=== PATIENT | male | born 1935 | race Caucasian/White ===

== ENCOUNTER 2018-03-03 13:33 | Inpatient (IN) | payer MEDICARE, OTHER ==
--- NOTE | 2018-03-03 14:23 | EDM.PDOC ---
ED HPI GENERAL MEDICAL PROBLEM - General Chief Complaint: Cardiovascular Problem Stated Complaint: SOB; SWOLLEN LIPS Time Seen by Provider: 03/03/18 14:05 Source of Information: Reports: Patient, Family History Limitations: Reports: No Limitations - History of Present Illness INITIAL COMMENTS - FREE TEXT/NARRATIVE: 82-year-old male who has not been to a doctor in years, on no regular medications presents with worsening peripheral edema and shortness of breath over the past several months. He had another difficult night last night where he had to sit up to sleep so his finally convinced him to come in to be seen. He has no chest pain, occasional cough but no fever or chills. He is on no special diet. He feels no palpitations. He is very anxious to just get fixed and get discharged because he has things to do. Onset: Gradual Severity: Moderate Worsens with: Reports: Other (The shortness of breath is worse with activity or laying down) Associated Symptoms: Reports: Shortness of Breath, Other (Peripheral edema is his other main complaint). Denies: Chest Pain, Cough, Fever/Chills, Headaches, Nausea/Vomiting - Related Data Allergies Allergy/AdvReac Type Severity Reaction Status Date / Time Penicillins Allergy Hives Verified 03/03/18 14:07 Past Medical History HEENT History: Reports: Hard of Hearing - Infectious Disease History Infectious Disease History: Reports: Chicken Pox, Measles, Mumps - Past Surgical History HEENT Surgical History: Reports: Other (See Below) Other HEENT Surgeries/Procedures: left eye ulcer Social & Family History - Tobacco Use Smoking Status *Q: Never Smoker - Caffeine Use Caffeine Use: Reports: Coffee - Recreational Drug Use Recreational Drug Use: No ED ROS GENERAL - Review of Systems Review Of Systems: See Below Constitutional: Reports: Malaise, Decreased Appetite. Denies: Fever HEENT: Reports: Rhinitis (Patient has been struggling with some persistent rhinitis this winter) Respiratory: Reports: Shortness of Breath. Denies: Pleuritic Chest Pain, Cough , Sputum Cardiovascular: Denies: Chest Pain, Palpitations GI/Abdominal: Denies: Abdominal Pain, Nausea, Vomiting : Reports: No Symptoms Skin: Reports: No Symptoms Neurological: Denies: Dizziness, Headache Psychiatric: Reports: No Symptoms ED EXAM, GENERAL - Physical Exam Exam: See Below Exam Limited By: No Limitations General Appearance: Alert, No Apparent Distress Ears: Hearing Loss Throat/Mouth: Normal Inspection Head: Atraumatic Neck: Normal Inspection Respiratory/Chest: Decreased Breath Sounds (Diffuse decreased breath sounds) Cardiovascular: Tachycardia, Irregularly Irregular GI/Abdominal: Soft, Non-Tender Extremities: Pedal Edema (Symmetric 2+ pitting edema to the knees bilaterally) Neurological: Alert, Oriented EKG INTERPRETATION EKG Date: 03/03/18 Rhythm: A-Fib Rate (Beats/Min): 128 Comparison: NA - No Prior EKG EKG Interpretation Comments: Patient has atrial fibrillation with rapid ventricular response, frequent PVCs. Course - Vital Signs Last Recorded V/S: Last Vital Signs Temp 95.8 F 03/04/18 03:00 Pulse 71 03/04/18 03:00 Resp 20 03/04/18 03:00 BP 113/78 03/04/18 03:00 Pulse Ox 96 03/04/18 03:00 - Orders/Labs/Meds Orders: Active Orders 24 hr Category Date Time Status EKG 12 Lead [EK] Routine Ther 03/03/18 14:20 Stop Req Medication Orders Acetaminophen (Tylenol) 650 mg PO Q4H PRN PRN Reason: Pain (Mild 1-3)/fever Albuterol (Proventil Neb Soln) 2.5 mg NEB Q4H PRN PRN Reason: Shortness Of Breath/wheezing Aspirin (Halfprin) 81 mg PO DAILY [facility] Metoprolol Tartrate (Lopressor) 50 mg PO Q12H [facility] Last Admin: 03/03/18 21:14 Dose: 50 mg Ondansetron HCl (Zofran Odt) 4 mg PO Q6H PRN PRN Reason: Nausea able to take PO Pneumococcal Polyvalent Vaccine (Pneumovax 23) 0.5 ml IM .ONCE ONE Stop: 03/04/18 10:01 Labs: Laboratory Tests 03/03/18 03/03/18 Range/Units 14:27 14:27 WBC 8.4 (4.5-11.0) K/uL RBC 4.66 (4.30-5.90) M/uL Hgb 12.7 (12.0-15.0) g/dL Hct 39.7 L (40.0-54.0) % MCV 85 (80-98) fL MCH 27 (27-31) pg MCHC 32 (32-36) % Plt Count 256 (150-400) K/uL Neut % (Auto) 72 H (36-66) % Lymph % (Auto) 14 L (24-44) % [place] % (Auto) 11 H (2-6) % Eos % (Auto) 2 (2-4) % Baso % (Auto) 1 (0-1) % Sodium 137 L (140-148) mmol/L Potassium 4.3 (3.6-5.2) mmol/L Chloride 100 (100-108) mmol/L Carbon Dioxide 27 (21-32) mmol/L Anion Gap 14.3 H (5.0-14.0) mmol/L BUN 17 (7-18) mg/dL Creatinine 1.1 (0.8-1.3) mg/dL Est Cr Clr Drug Dosing 57.81 mL/min Estimated GFR (MDRD) > 60 (>60) Glucose 121 H (74-106) mg/dL Calcium 9.0 (8.5-10.1) mg/dL Total Bilirubin 0.8 (0.2-1.0) mg/dL AST 26 (15-37) U/L ALT 47 (12-78) U/L Alkaline Phosphatase 88 (46-116) U/L Troponin I < 0.017 (0.000-0.056) ng/mL NT-Pro-B Natriuret Pep 1760 H (5-450) pg/mL Total Protein 6.9 (6.4-8.2) g/dL Albumin 3.9 (3.4-5.0) g/dL Globulin 3.0 (2.3-3.5) g/dL Albumin/Globulin Ratio 1.3 (1.2-2.2) Meds: Medications Generic Name Dose Route Start Last Admin Trade Name Freq PRN Reason Stop Dose Admin Acetaminophen 650 mg 03/03/18 16:21 Tylenol PO Q4H PRN Pain (Mild 1-3)/fever Albuterol 2.5 mg 03/03/18 16:21 Proventil Neb Soln NEB Q4H PRN Shortness Of Breath/wheezing Aspirin 81 mg 03/04/18 09:00 Halfprin PO DAILY [facility] Metoprolol Tartrate 50 mg 03/03/18 22:00 03/03/18 21:14 Lopressor PO 50 mg Q12H [facility] Administration Ondansetron HCl 4 mg 03/03/18 16:21 Zofran Odt PO Q6H PRN Nausea able to take PO Pneumococcal Polyvalent Vaccine 0.5 ml 03/04/18 10:00 Pneumovax 23 IM 03/04/18 10:01 .ONCE ONE Discontinued Medications Generic Name Dose Route Start Last Admin Trade Name Freq PRN Reason Stop Dose Admin Furosemide 40 mg 03/03/18 15:52 03/03/18 16:20 Lasix PO 03/03/18 15:53 40 mg ONETIME ONE Administration Metoprolol Tartrate 50 mg 03/03/18 15:52 03/03/18 16:19 Lopressor PO 03/03/18 15:53 50 mg ONETIME ONE Administration - Re-Assessments/Exams Free Text/Narrative Re-Assessment/Exam: 03/03/18 14:24 Explained to the patient that he has an ongoing cardiac arrhythmia that needs more than just a fast fix. He became somewhat upset that he may have to stay tonight. He agreed to allow us to draw some labs and get a chest x-ray. CBC, CMP , troponin and BNP were obtained as well as a two-view chest x-ray. 03/03/18 15:22 Troponin is 0. CBC and CMP are relatively normal, BNP is 1760. Chest x-ray shows mild to moderate cardiomegaly but no significant congestive heart failure findings. I asked Dr. Bui of the hospitalist service to evaluate the patient for possible admission for evaluation of newly diagnosed atrial fibrillation, rate control, and possible anticoagulation. He may likely need some diuresis as well. Departure - Departure Time of Disposition: 16:46 Disposition: Admitted As Inpatient 67 Condition: Fair Clinical Impression: Atrial fibrillation with rapid ventricular response, Congestive heart failure - My Orders Last 24 Hours: My Active Orders 03/03/18 14:20 EKG 12 Lead [EK] Routine - Assessment/Plan Last 24 Hours: My Active Orders 03/03/18 14:20 EKG 12 Lead [EK] Routine
--- NOTE | 2018-03-03 14:58 | CR ---
Chest 2V INDICATION: dyspnea FINDINGS: Cardiac enlargement. Mild prominence of the pulmonary vascularity. No focal infiltrate. Fin dings suggest early CHF.
[2018-03-03] MEDS ORDERED: Metoprolol Tartrate 50 MG Tab PO ONE (15:52)
[2018-03-03] MEDS ORDERED: Furosemide 40 MG Tab PO ONE (15:52)
--- NOTE | 2018-03-03 15:59 | PCM.HP ---
H&P History of Present Illness - General Date of Service: 03/03/18 Admit Problem/Dx: Admission Diagnosis/Problem Admission Diagnosis/Problem Rapid atrial fibrillation Source of Information: Patient, Family, Provider History Limitations: Reports: No Limitations - History of Present Illness Initial Comments - Free Text/Narative: Santo presents to the emergency room today with orthopnea and lower extremity swelling as well as dyspnea with exertion. Symptoms have been present for months but have been worse the last couple of days, especially the orthopnea. He reports onset of lower extremity edema at least around Christmastime if not earlier. This has been slowly progressing and he has been having to loosen his shoes each day. He does not keep track of his weight. He reports slowly progressive dyspnea with exertion but is able to complete his activities of daily living at home including feeding his outside woodstove. He has not had chest pain in the last 6 months and has no history of heart disease. He reports orthopnea and has been sleeping in a chair for the past several nights. He has not had any fevers. Appetite has been normal. He does not take any medications at home. No recent infections. Workup in the emergency room was suggestive of atrial fibrillation with a rapid ventricular response. Laboratory studies have been reassuring. Subacute congestive heart failure secondary to the atrial fibrillation is also suggested. The patient is willing to spend one night for expedited workup. - Related Data Allergies/Adverse Reactions: Allergies Allergy/AdvReac Type Severity Reaction Status Date / Time Penicillins Allergy Hives Verified 03/03/18 14:07 Past Medical History HEENT History: Reports: Hard of Hearing - Infectious Disease History Infectious Disease History: Reports: Chicken Pox, Measles, Mumps - Past Surgical History HEENT Surgical History: Reports: Other (See Below) Other HEENT Surgeries/Procedures: left eye ulcer Social & Family History - Family History Cardiac: Reports: CAD (brother) - Tobacco Use Smoking Status *Q: Never Smoker - Caffeine Use Caffeine Use: Reports: Coffee - Alcohol Use Alcohol Use History: No - Recreational Drug Use Recreational Drug Use: No H&P Review of Systems - Review of Systems: Review Of Systems: See Below Free Text/Narrative: A complete 12 point review of systems was obtained. Pertinent positives and negatives are noted in the history of present illness. All other systems were reviewed and were negative except as noted. Exam - Exam Exam: See Below - Vital Signs Vital Signs: Last Vital Signs Temp 36.9 C 03/03/18 14:05 Pulse 107 H 03/03/18 15:04 Resp 18 03/03/18 14:05 BP 147/107 H 03/03/18 14:05 Pulse Ox 95 03/03/18 14:05 Weight: 90.718 kg - Exam Quality Assessment: No: Supplemental Oxygen General: Alert, Oriented, Cooperative. No: Mild Distress HEENT: Conjunctiva Clear, Mucosa Moist & [place]. No: Scleral Icterus Neck: Supple, Trachea Midline. No: Lymphadenopathy Lungs: Clear to Auscultation, Normal Respiratory Effort Cardiovascular: Irregular Rhythm, Tachycardia. No: Systolic Murmur GI/Abdominal Exam: Normal Bowel Sounds, Soft, Non-Tender, No Distention Back Exam: Normal Inspection, Full Range of Motion Extremities: Pedal Edema (pitting edema to midshin bilaterally ). No: Increased Warmth Peripheral Pulses: 1+: Dorsalis Pedis (L), Dorsalis Pedis (R) Skin: Warm, Dry Neuro Extensive - Mental Status: Alert, Oriented x3, Nl Response to Commands Neuro Extensive - Motor, Sensory, Reflexes: CN II-XII Intact. No: Dysarthria, Abnormal Motor, Tremor Psychiatric: Alert, Normal Affect - Patient Data Lab Results Last 24 hrs: Laboratory Results - last 24 hr 03/03/18 03/03/18 Range/Units 14:27 14:27 WBC 8.4 (4.5-11.0) K/uL RBC 4.66 (4.30-5.90) M/uL Hgb 12.7 (12.0-15.0) g/dL Hct 39.7 L (40.0-54.0) % MCV 85 (80-98) fL MCH 27 (27-31) pg MCHC 32 (32-36) % Plt Count 256 (150-400) K/uL Neut % (Auto) 72 H (36-66) % Lymph % (Auto) 14 L (24-44) % [place] % (Auto) 11 H (2-6) % Eos % (Auto) 2 (2-4) % Baso % (Auto) 1 (0-1) % Sodium 137 L (140-148) mmol/L Potassium 4.3 (3.6-5.2) mmol/L Chloride 100 (100-108) mmol/L Carbon Dioxide 27 (21-32) mmol/L Anion Gap 14.3 H (5.0-14.0) mmol/L BUN 17 (7-18) mg/dL Creatinine 1.1 (0.8-1.3) mg/dL Est Cr Clr Drug Dosing 57.81 mL/min Estimated GFR (MDRD) > 60 (>60) Glucose 121 H (74-106) mg/dL Calcium 9.0 (8.5-10.1) mg/dL Total Bilirubin 0.8 (0.2-1.0) mg/dL AST 26 (15-37) U/L ALT 47 (12-78) U/L Alkaline Phosphatase 88 (46-116) U/L Troponin I < 0.017 (0.000-0.056) ng/mL NT-Pro-B Natriuret Pep 1760 H (5-450) pg/mL Total Protein 6.9 (6.4-8.2) g/dL Albumin 3.9 (3.4-5.0) g/dL Globulin 3.0 (2.3-3.5) g/dL Albumin/Globulin Ratio 1.3 (1.2-2.2) Result Diagrams: 03/03/18 14:27 03/03/18 14:27 Imaging Impressions Last 24 hrs: CXR - images personally reviewed - lungs are clear with no effusion, mass or infiltrate. Heart size is at the upper limits of normal. EKG INTERPRETATION EKG Date: 03/03/18 Rhythm: A-Fib Rate (Beats/Min): 129 Orange: Normal P-Wave: Variable QRS: Normal ST-T: Normal QT: Normal Comparison: NA - No Prior EKG *Q Meaningful Use (ADM) - VTE Risk Assess *Q Each Risk Factor Represents 1 Point: Swollen Legs, Current, Obesity ( BMI > 25 kg/m2), Congestive heart failure (CHF) Total Score 1 Point Risk Factors: 3 Each Risk Factor Represents 2 Points: None Total Score 2 Point Risk Factors: 0 Each Risk Factor Represents 3 Points: Age 75 Years or Greater Total Score 3 Point Risk Factors: 3 Each Risk Factor Represents 5 Points: None Total Score 5 Point Risk Factors: 0 Venous Thromboembolism Risk Factor Score *Q: 6 - Problem List (1) Atrial fibrillation with rapid ventricular response SNOMED Code(s): 929441732152284 ICD Code: I48.91 - UNSPECIFIED ATRIAL FIBRILLATION Status: Acute Current Visit: Yes (2) Congestive heart failure SNOMED Code(s): 59873836 ICD Code: I50.9 - HEART FAILURE, UNSPECIFIED Status: Suspected Current Visit: Yes Qualifiers: Heart failure type: unspecified Heart failure chronicity: unspecified Qualified Code(s): I50.9 - Heart failure, unspecified Problem List Initiated/Reviewed/Updated: Yes Orders Last 24hrs: Active Orders 24 hr Category Date Time Status Patient Status Manage Transfer [TRANSFER] Routine ADT 03/03/18 15:53 Ordered EKG Documentation Completion [RC] ASDIRECTED Care 03/03/18 14:20 Active Resuscitation Status Routine Resus Stat 03/03/18 15:53 Ordered EKG 12 Lead [EK] Routine Ther 03/03/18 14:20 Ordered Assessment/Plan Comment:: ASSESSMENT AND PLAN - Atrial fibrillation with rapid ventricular response - duration is entirely unclear at this time and they have been present for some months. Symptoms currently include dyspnea on exertion and there is some evidence for congestive heart failure. At this point is CHADSS score is 1 for age and his congestive heart failure status is not entirely clear. He does not currently nee acute rate slowing with no symptoms and no strong evidence for acute decompensation. We have discussed systemic anticoagulation and will revisit this again tomorrow once we know his left ventricular function. -Trial of metoprolol -TSH -Cardiac monitoring -Echo in the morning -Daily aspirin Congestive heart failure, suspected - No history of heart disease. He has peripheral edema as well as orthopnea and dyspnea on exertion that could suggest either diastolic or systolic congestive heart failure. -Start metoprolol -CHF education -Echo in the morning Maintenance issues - - DVT prophylaxis - mechanical - GI prophylaxis - not indicated - Nutrition - low sodium diet - Gurrola catheter - not indicated CODE STATUS - full code Admission justification - patient will be referred observation status for expedited workup of new onset atrial fibrillation. Disposition - anticipate discharge to home tomorrow Primary care physician - patient currently does not have a primary care provider Je Bui M.D.
[2018-03-03] MEDS ORDERED: Albuterol 0.083% 2.5 MG/3 ML Neb Soln NEB PRN (16:21)
[2018-03-03] MEDS ORDERED: Ondansetron 4 MG Tab.DIS PO PRN (16:21)
[2018-03-03] MEDS ORDERED: Acetaminophen 325 MG Tab PO PRN (16:21)
[2018-03-03] MEDS: Metoprolol Tartrate 50 MG Tab PO SCH (21:14)
[2018-03-04] MEDS: Metoprolol Tartrate 50 MG Tab PO SCH (09:18)
[2018-03-04] MEDS: Aspirin 81 MG Tab.EC PO SCH (09:18)
[2018-03-04] MEDS ORDERED: Pneumococcal Polyvalent-23 Vaccine 0.5 ML SDV IM ONE (10:00)
--- NOTE | 2018-03-04 10:41 | PCM.PN ---
- General Info Date of Service: 03/04/18 Functional Status: Reports: Pain Controlled, Tolerating Diet - Review of Systems General: Denies: Fever Cardiovascular: Reports: Orthopnea, Edema Systems Review Comment:: There were no acute events overnight. We were able to achieve good rate control utilizing metoprolol. Breathing has improved some with diuresis yesterday afternoon. Does still have orthopnea but it's better than prior to admission. Lower extremity edema has improved some since admission. Thyroid testing was normal. Echocardiogram this morning showed severe tricuspid and mitral regurgitation as well as at least a moderately reduced ejection fraction. - Patient Data Vitals - Most Recent: Last Vital Signs Temp 35.3 C 03/04/18 08:05 Pulse 70 03/04/18 09:18 Resp 16 03/04/18 08:05 BP 144/86 H 03/04/18 09:18 Pulse Ox 100 03/04/18 08:05 Weight - Most Recent: 101.333 kg I&O - Last 24 Hours: Intake & Output 03/03/18 03/04/18 03/04/18 22:59 06:59 14:59 Intake Total 360 800 Balance 360 800 Lab Results Last 24 Hours: Laboratory Results - last 24 hr 03/03/18 03/03/18 03/03/18 Range/Units 14:27 14:27 16:25 WBC 8.4 (4.5-11.0) K/uL RBC 4.66 (4.30-5.90) M/uL Hgb 12.7 (12.0-15.0) g/dL Hct 39.7 L (40.0-54.0) % MCV 85 (80-98) fL MCH 27 (27-31) pg MCHC 32 (32-36) % Plt Count 256 (150-400) K/uL Neut % (Auto) 72 H (36-66) % Lymph % (Auto) 14 L (24-44) % [place] % (Auto) 11 H (2-6) % Eos % (Auto) 2 (2-4) % Baso % (Auto) 1 (0-1) % Sodium 137 L (140-148) mmol/L Potassium 4.3 (3.6-5.2) mmol/L Chloride 100 (100-108) mmol/L Carbon Dioxide 27 (21-32) mmol/L Anion Gap 14.3 H (5.0-14.0) mmol/L BUN 17 (7-18) mg/dL Creatinine 1.1 (0.8-1.3) mg/dL Est Cr Clr Drug Dosing 57.81 mL/min Estimated GFR (MDRD) > 60 (>60) Glucose 121 H (74-106) mg/dL Calcium 9.0 (8.5-10.1) mg/dL Total Bilirubin 0.8 (0.2-1.0) mg/dL AST 26 (15-37) U/L ALT 47 (12-78) U/L Alkaline Phosphatase 88 (46-116) U/L Troponin I < 0.017 (0.000-0.056) ng/mL NT-Pro-B Natriuret Pep 1760 H (5-450) pg/mL Total Protein 6.9 (6.4-8.2) g/dL Albumin 3.9 (3.4-5.0) g/dL Globulin 3.0 (2.3-3.5) g/dL Albumin/Globulin Ratio 1.3 (1.2-2.2) Free T4 (0.76-1.46) ng/dL TSH, Ultra Sensitive 5.898 H (0.358-3.740) uIU/mL 03/03/18 Range/Units 17:05 WBC (4.5-11.0) K/uL RBC (4.30-5.90) M/uL Hgb (12.0-15.0) g/dL Hct (40.0-54.0) % MCV (80-98) fL MCH (27-31) pg MCHC (32-36) % Plt Count (150-400) K/uL Neut % (Auto) (36-66) % Lymph % (Auto) (24-44) % [place] % (Auto) (2-6) % Eos % (Auto) (2-4) % Baso % (Auto) (0-1) % Sodium (140-148) mmol/L Potassium (3.6-5.2) mmol/L Chloride (100-108) mmol/L Carbon Dioxide (21-32) mmol/L Anion Gap (5.0-14.0) mmol/L BUN (7-18) mg/dL Creatinine (0.8-1.3) mg/dL Est Cr Clr Drug Dosing mL/min Estimated GFR (MDRD) (>60) Glucose (74-106) mg/dL Calcium (8.5-10.1) mg/dL Total Bilirubin (0.2-1.0) mg/dL AST (15-37) U/L ALT (12-78) U/L Alkaline Phosphatase (46-116) U/L Troponin I (0.000-0.056) ng/mL NT-Pro-B Natriuret Pep (5-450) pg/mL Total Protein (6.4-8.2) g/dL Albumin (3.4-5.0) g/dL Globulin (2.3-3.5) g/dL Albumin/Globulin Ratio (1.2-2.2) Free T4 0.94 (0.76-1.46) ng/dL TSH, Ultra Sensitive (0.358-3.740) uIU/mL Med Orders - Current: Current Medications Acetaminophen (Tylenol) 650 mg PO Q4H PRN PRN Reason: Pain (Mild 1-3)/fever Albuterol (Proventil Neb Soln) 2.5 mg NEB Q4H PRN PRN Reason: Shortness Of Breath/wheezing Aspirin (Halfprin) 81 mg PO DAILY [facility] Last Admin: 03/04/18 09:18 Dose: 81 mg Ondansetron HCl (Zofran Odt) 4 mg PO Q6H PRN PRN Reason: Nausea able to take PO Discontinued Medications Furosemide (Lasix) 40 mg PO ONETIME ONE Stop: 03/03/18 15:53 Last Admin: 03/03/18 16:20 Dose: 40 mg Metoprolol Tartrate (Lopressor) 50 mg PO ONETIME ONE Stop: 03/03/18 15:53 Last Admin: 03/03/18 16:19 Dose: 50 mg Metoprolol Tartrate (Lopressor) 50 mg PO Q12H [facility] Last Admin: 03/04/18 09:18 Dose: 50 mg Pneumococcal Polyvalent Vaccine (Pneumovax 23) 0.5 ml IM .ONCE ONE Stop: 03/04/18 10:01 Last Admin: 03/04/18 09:18 Dose: 0.5 ml - Exam Quality Assessment: No: Supplemental Oxygen General: Alert, Oriented, Cooperative, No Acute Distress Neck: Supple Lungs: Clear to Auscultation, Normal Respiratory Effort Cardiovascular: Regular Rate, No Murmurs, Irregular Rhythm GI/Abdominal Exam: Soft, No Distention Extremities: Pedal Edema (mild bilateral ankle edema). No: Increased Warmth Psy/Mental Status: Alert, Normal Affect - Problem List & Annotations (1) Atrial fibrillation with rapid ventricular response SNOMED Code(s): 555861721305603 Code(s): I48.91 - UNSPECIFIED ATRIAL FIBRILLATION Status: Acute Current Visit: Yes (2) Congestive heart failure SNOMED Code(s): 64086598 Code(s): I50.9 - HEART FAILURE, UNSPECIFIED Status: Suspected Current Visit: Yes Qualifiers: Heart failure type: systolic Heart failure chronicity: acute Qualified Code(s): I50.21 - Acute systolic (congestive) heart failure - Problem List Review Problem List Initiated/Reviewed/Updated: Yes - My Orders Last 24 Hours: My Active Orders 03/03/18 15:53 Resuscitation Status Routine 03/03/18 16:21 Cardiac Monitoring [RC] CONTINUOUS Intake and Output [RC] QSHIFT Notify Provider Vital Signs [RC] ASDIRECTED Oxygen Therapy [RC] PRN RT Aerosol Therapy [RC] ASDIRECTED Up With Assistance [RC] ASDIRECTED VTE/DVT Education [RC] Per Unit Routine Vital Signs [RC] Q4H Acetaminophen [Tylenol] 650 mg PO Q4H PRN Albuterol [Proventil Neb Soln] 2.5 mg NEB Q4H PRN Ondansetron [Zofran ODT] 4 mg PO Q6H PRN Antiembolic Hose [OM.PC] Per Unit Routine 03/03/18 Dinner 2 Gram Sodium Diet [DIET] 03/04/18 07:00 Echo Comp wo Cont [US] Routine 03/04/18 09:00 Aspirin [Halfprin] 81 mg PO DAILY 03/04/18 10:35 Patient Status [ADT] Routine 03/04/18 10:36 Furosemide [Lasix] 40 mg IVPUSH ONETIME ONE 03/04/18 13:00 Warfarin [Coumadin] 5 mg PO DAILY@1300 03/04/18 21:00 Carvedilol [Coreg] 12.5 mg PO BID 03/05/18 05:00 INR,PT,PROTHROMBIN TIME [COAG] Timed 03/05/18 07:00 Myocardial Perf Spect Multi [NM] Routine - Plan Plan:: ASSESSMENT AND PLAN - Atrial fibrillation with rapid ventricular response - duration is entirely unclear at this time and they have been present for some months. CHADSS score is 2 even without accounting for the VASC portion. Patient is interested in systemic anticoagulation and we did review the potential benefits of anticoagulation including stroke risk reduction as well as potential risks including leading. We reviewed warfarin versus the NOAC's and have elected to initiate warfarin. Excellent rate control overnight. -change to carvedilol -Cardiac monitoring -start warfarin -Daily aspirin Subacute systolic congestive heart failure, suspected - No history of heart disease. Echo shows moderately reduced EF as well as multiple valvular abnormalities including severe tricuspid and mitral regurgitation. Differential at this point would include tachycardia mediated cardiomyopathy versus occult ischemic cardiomyopathy. -change to carvedilol -CHF education -Stress test in am -Outpatient cardiology follow-up as indicated -Consider CHENG inhibitor initiation Maintenance issues - - DVT prophylaxis - mechanical - GI prophylaxis - not indicated - Nutrition - low sodium diet - Gurrola catheter - not indicated CODE STATUS - full code Admission justification - patient will be transitioned to inpatient status with new diagnosis of systolic heart failure and IV diuresis as well as ischemic work up Disposition - anticipate discharge to home tomorrow Primary care physician - patient currently does not have a primary care provider Je Bui M.D.
[2018-03-04] MEDS ORDERED: Furosemide 40 MG/4 ML VIAL IVPUSH ONE (11:30)
[2018-03-04] MEDS ORDERED: FLU Vacc QS 2017-18 (36mos UP)/PF 60 MCG/0.5 ML Syringe IM ONE (12:45)
[2018-03-04] MEDS: Warfarin 5 MG Tab PO SCH (13:20)
[2018-03-04] MEDS ORDERED: Carvedilol 12.5 MG Tab PO SCH (21:00)
[2018-03-05] MEDS ORDERED: Aminophylline 250 MG/10 ML SDV IVPUSH PRN (06:32)
[2018-03-05] MEDS: Warfarin 5 MG Tab PO SCH (12:24)
--- NOTE | 2018-03-05 13:34 | NM ---
Myocardial Perf Spect Multi INDICATION: cardiomyopathy, dyspnea on exertion COMPARISON: None. TECHNIQUE: [employer] Nuclear medicine Cardiolite scan was performed utilizing 21.0 millicuries uptake technetium 99m sestamibi at stress and 10.3 millicuries of technetium 99m at rest. FINDINGS: Large, partially reversible perfusion defect involving the inferior wall and inferoseptal w all from the apex to the base. Small, reversible perfusion defect involving the anterior wall from t he mid to the base. The remainder of the left ventricular myocardium demonstrates homogeneous radiotr acer uptake. Wall motion studies demonstrate diffuse hypokinesia. Calculated left ventricular ejectio n fraction measures 38% at stress and 40% at rest. IMPRESSION: 1. Large infarct with caleb-infarct ischemia in a circumflex and right coronary artery distribution. 2. Ischemia in an LAD distribution. 3. Decreased left ventricular ejection fraction. 4. Global hypokinesia.
[2018-03-05] MEDS: Aspirin 81 MG Tab.EC PO SCH (13:51)
[2018-03-05] MEDS ORDERED: atorvaSTATin 20 MG Tab PO ONE (14:26)
[2018-03-05] MEDS ORDERED: Clopidogrel 75 MG Tab PO ONE (14:26)
--- NOTE | 2018-03-05 14:37 | PCM.DCSUM1 ---
Discharge Summary - Hospital Course Brief History: 82-year-old male with no medical care for many years who presented with orthopnea and lower extremity swelling. He was admitted for further workup and management of atrial fibrillation and presumed congestive heart failure. - Discharge Data Discharge Date: 03/05/18 Discharge Disposition: Home, Self-Care 01 Condition: Fair - Discharge Diagnosis/Problem(s) (1) Atrial fibrillation with rapid ventricular response SNOMED Code(s): 348667293397181 ICD Code: I48.91 - UNSPECIFIED ATRIAL FIBRILLATION Status: Acute (2) Congestive heart failure SNOMED Code(s): 59037208 ICD Code: I50.9 - HEART FAILURE, UNSPECIFIED Status: Suspected Qualifiers: Heart failure type: systolic Heart failure chronicity: acute Qualified Code(s): I50.21 - Acute systolic (congestive) heart failure - Patient Summary/Data Hospital Course: Santo presented to the emergency room with several days of progressive shortness of breath and orthopnea. He also reported several months of progressive dyspnea on exertion and progressive lower extremity edema. Workup in the emergency room was reassuring as far as blood tests were concerned but he was noted to be in atrial fibrillation with a rapid ventricular response. After some discussion he was agreeable to stay one night for initial management and further workup. I started him on metoprolol to help with the atrial fibrillation and fortunately had a good response with excellent rate control. Blood pressure improved and was in the normal range with the metoprolol. He received diuresis the afternoon of admission as well as the morning after admission and had improvement in his shortness of breath as well as his edema. The morning after admission we completed an echocardiogram which showed evidence for global hypokinesis and an ejection fraction of approximately 30%. He had severe tricuspid and mitral regurgitation as well as mild to moderate aortic regurgitation. Once the echocardiogram results were available I elected to transition him to carvedilol. Given his increased risk for stroke with the atrial fibrillation we initiated warfarin therapy. With the new onset atrial fibrillation, dyspnea on exertion as well as the cardiomyopathy we discussed the need for an ischemic workup. We elected to have the patient stay second night for the ischemic workup as well as further management of his now identified systolic congestive heart failure. He responded well to additional diuresis the afternoon prior to discharge as well as the morning of discharge. The stress test which was completed on the morning of discharge showed a partially reversible inferior wall defect as well as a fully reversible distal anterior wall defect. I discussed the case with Dr. Mccloud at [facility] in [place]. He recommended an angiogram for further evaluation of these defects noted on the stress test. The patient will be set up for an angiogram tomorrow morning. He will be going home this afternoon and was encouraged to take it easy until after the angiogram. He did receive 80 mg of atorvastatin and 600 mg of clopidogrel the afternoon prior to discharge from the hospital. He was encouraged to seek medical attention if he develops chest pain or severe shortness of breath before the angiogram. Medications at the time of discharge include 81 mg of aspirin daily, carvedilol and atorvastatin. He will most likely be on warfarin but this will be on hold until after the angiogram and some further risk stratification. - Patient Instructions Diet: Heart Healthy Diet Activity: As Tolerated Showering/Bathing: May Shower Notify Provider of: Fever, Increased Pain, Nausea and/or Vomiting Other/Special Instructions: 1. You were in the hospital for management of atrial fibrillation with a rapid ventricular response (fast rate). your heart rate has improved with the use of carvedilol. With your increased risk of stroke I think that you would benefit from systemic anticoagulation but this will be on hold because you will be having an angiogram procedure in the near future. 2. During the hospital stay we performed a stress test which raised concern that you may have blockages in 2 of your coronary arteries. We have set up a referral to [facility] in [place] for an angiogram. At the time of discharge you will receive a time for the procedure and further instructions. 3. I recommend the following medications to help control your atrial fibrillation as well as manage your heart problems: --Carvedilol 12.5 mg, you should take one tablet twice daily. This medication will help to keep your heart rate slow and reduce the work your heart needs to do. --Aspirin 81 mg, take 1 tablet daily. This medication helps to make platelets slippery and keep blood flowing through your coronary arteries. --Atorvastatin 80 mg, take 1 tablet daily at bedtime. This medication helps to reduce cholesterol in your bloodstream. --Furosemide 40 mg tablets, take 1 tablet daily as needed for lower extremity edema. This is a water pill that will help reduce swelling if it develops. 4. Please seek medical attention if you develop acute shortness of breath, chest pain/chest tightness or significant dizziness/lightheadedness that interferes with your activities of daily living. - Discharge Plan Prescriptions/Med Rec: Aspirin [Halfprin] 81 mg PO DAILY #90 tab.ec atorvaSTATin Calcium [Atorvastatin Calcium] 80 mg PO BEDTIME #30 tablet Carvedilol [Coreg] 12.5 mg PO BID #60 tablet Furosemide 40 mg PO DAILY PRN #30 tablet PRN Reason: Edema Home Medications: Home Meds Aspirin [Halfprin] 81 mg PO DAILY #90 tab.ec 03/05/18 [Rx] Carvedilol [Coreg] 12.5 mg PO BID #60 tablet 03/05/18 [Rx] Furosemide 40 mg PO DAILY PRN #30 tablet 03/05/18 [Rx] atorvaSTATin Calcium [Atorvastatin Calcium] 80 mg PO BEDTIME #30 tablet [Rx] Patient Handouts: Carvedilol tablets, Heart Failure, [id number], Atrial Fibrillation, [id number] Referrals: Coumadin,Clinic [Ordering Only Provider] - 03/10/18 1:45 pm Rudy Evans MD [Physician] - 03/12/18 1:30 pm - Patient Data Vitals - Most Recent: Last Vital Signs Temp 36.0 C 03/05/18 07:00 Pulse 98 03/05/18 13:52 Resp 16 03/05/18 10:55 BP 125/108 H 03/05/18 13:52 Pulse Ox 94 L 03/05/18 10:55 Weight - Most Recent: 100.335 kg I&O - Last 24 hours: Intake & Output 03/04/18 03/05/18 03/05/18 22:59 06:59 14:59 Intake Total 750 Output Total 550 600 300 Balance 200 -600 -300 Lab Results - Last 24 hrs: Laboratory Results - last 24 hr 03/05/18 Range/Units 05:58 PT 12.5 H (9.5-12.0) sec INR 1.16 (0.80-1.20) Med Orders - Current: Current Medications Acetaminophen (Tylenol) 650 mg PO Q4H PRN PRN Reason: Pain (Mild 1-3)/fever Albuterol (Proventil Neb Soln) 2.5 mg NEB Q4H PRN PRN Reason: Shortness Of Breath/wheezing Aminophylline (Aminophylline) 125 mg IVPUSH ONETIME PRN PRN Reason: Other Aspirin (Halfprin) 81 mg PO DAILY [facility] Last Admin: 03/05/18 13:51 Dose: 81 mg Atorvastatin Calcium (Lipitor) 80 mg PO ONETIME ONE Stop: 03/05/18 14:27 Carvedilol (Coreg) 12.5 mg PO BID [facility] Last Admin: 03/05/18 13:52 Dose: 12.5 mg Clopidogrel Bisulfate (Plavix) 600 mg PO ONETIME ONE Stop: 03/05/18 14:27 Ondansetron HCl (Zofran Odt) 4 mg PO Q6H PRN PRN Reason: Nausea able to take PO Warfarin Sodium (Coumadin) 5 mg PO DAILY@1300 [facility] Last Admin: 03/05/18 12:24 Dose: 5 mg Discontinued Medications Furosemide (Lasix) 40 mg PO ONETIME ONE Stop: 03/03/18 15:53 Last Admin: 03/03/18 16:20 Dose: 40 mg Furosemide (Lasix) 40 mg IVPUSH ONETIME ONE Stop: 03/04/18 11:31 Last Admin: 03/04/18 11:29 Dose: 40 mg Influenza Virus Vaccine (Fluzone Quad [id number]) 60 mcg IM ONETIME ONE Stop: 03/04/18 12:46 Last Admin: 03/04/18 13:20 Dose: 60 mcg Metoprolol Tartrate (Lopressor) 50 mg PO ONETIME ONE Stop: 03/03/18 15:53 Last Admin: 03/03/18 16:19 Dose: 50 mg Metoprolol Tartrate (Lopressor) 50 mg PO Q12H [facility] Last Admin: 03/04/18 09:18 Dose: 50 mg Pneumococcal Polyvalent Vaccine (Pneumovax 23) 0.5 ml IM .ONCE ONE Stop: 03/04/18 10:01 Last Admin: 03/04/18 09:18 Dose: 0.5 ml Regadenoson (Lexiscan) 0.4 mg IVPUSH ONETIME ONE Stop: 03/05/18 11:01 Last Admin: 03/05/18 11:08 Dose: 0.4 mg - Exam Quality Assessment: Denies: Supplemental Oxygen General: Reports: Alert, Oriented, Cooperative, No Acute Distress Neck: Reports: Supple Lungs: Reports: Normal Respiratory Effort Cardiovascular: Reports: Regular Rate, Irregular Rhythm GI/Abdominal Exam: No Distention Extremities: Pedal Edema (mild ankle edema) Psy/Mental Status: Reports: Alert, Normal Affect
--- NOTE | 2018-03-06 00:10 | STRESS ---
DATE OF SERVICE: 03/05/2018 PROPOSED PROCEDURE: Lexiscan stress test. INDICATION FOR STRESS TEST: Atrial fibrillation and dyspnea on exertion. REFERRING PHYSICIAN: Dr. Je Bui. DESCRIPTION OF THE PROCEDURE: Santo is an 82-year-old male here from the 2nd floor for an inpatient stress test. Preprocedure, his EKG shows atrial fibrillation with a normal axis. He has a normal rate and no significant abnormalities other than a rare PVC. Baseline blood pressure 134/83 with a pulse of 90. The stress test was administered per the protocol. Review of the continuous EKG monitoring showed no impressive changes in the ST segments during the stress or recovery portion of the test. He did have some nonspecific lateral T- wave flattening during the recovery phase. Multiple PVCs were noted during stress and recovery. Blood pressure gaviota slightly after injection of Lexiscan with a maximum of 160/114 before returning to baseline. Heart rate gaviota to a maximum of 116 at the 1 minute anabel of recovery before returning to baseline. Postprocedure, his blood pressure was 135/90 and his pulse was 89. Review of the tire service technician's notes suggest that the patient tolerated the test well with a report of mild shortness of breath and a mild headache that resolved without intervention. IMPRESSION: Negative EKG portion of the stress test. The nuclear medicine portion will be interpreted separately for additional clinical correlation. Je Bui MD /[id number]
== END 2018-03-05 16:15 | disposition home or self-care (01) | DRG 308 ==
LOC: JP.ED 13:33 → JP.MS 15:53 → OBSVTOIN 03-04 09:32
PROVIDERS: ADMIT Internal Medicine; ATTEND Internal Medicine
DX: I48.91 Unspecified atrial fibrillation (principal); I50.9 Heart failure, unspecified; R06.02 Shortness of breath; R60.9 Edema, unspecified; R06.00 Dyspnea, unspecified; I50.21 Acute systolic (congestive) heart failure; Z23 Encounter for immunization; H91.90 Unspecified hearing loss, unspecified ear; I36.1 Nonrheumatic tricuspid (valve) insufficiency; I34.0 Nonrheumatic mitral (valve) insufficiency; I35.1 Nonrheumatic aortic (valve) insufficiency; Z88.0 Allergy status to penicillin; Z79.82 Long term (current) use of aspirin
CPT/HCPCS: 36415; 71046 ×2; 80053; 83880; 84439; 84443; 84484; 85025; 90732; 93005; 93306; 99285; A9270 ×5; G0009; 78452; 78452-26; 85610; 90686; 93017; A9500; G0008; J1940; J2785

== ENCOUNTER 2018-04-07 05:17 | Emergency (ER) | payer MEDICARE, OTHER ==
--- NOTE | 2018-04-07 06:16 | EDM.PDOC ---
ED HPI GENERAL MEDICAL PROBLEM - General Chief Complaint: General Stated Complaint: SWOLLEN LEFT HAND/ARM Time Seen by Provider: 04/07/18 06:05 Source of Information: Reports: Patient, Family, Old Records, RN History Limitations: Reports: No Limitations - History of Present Illness INITIAL COMMENTS - FREE TEXT/NARRATIVE: 82 yo male presents with gradual swelling to the dorsum of his L hand for the past few days. Last night he could not sleep so he decided this morning to come to the ER. Does not have a family doctor. Recently was seen in [place] by cardiology for a coronary stent. Has a pHx of Afib and CHF. Has not had a fever. The hand that is swollen is the hand that he had IV's in when at [place]. Onset: Gradual Onset Date: 04/05/18 Duration: Day(s): (2+), Getting Worse Location: Reports: Upper Extremity, Left Quality: Reports: Dull Severity: Mild Improves with: Reports: None Worsens with: Reports: Other (? time) Context: Reports: Other (IV in that hand recently.) Associated Symptoms: Reports: No Other Symptoms. 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) (none) left wrist Pain Score (Numeric/FACES): 5 - Related Data Allergies Allergy/AdvReac Type Severity Reaction Status Date / Time meropenem Allergy Hives Verified 04/07/18 05:52 Penicillins Allergy Hives Verified 03/03/18 14:07 Home Meds: Home Meds atorvaSTATin Calcium [Atorvastatin Calcium] 80 mg PO BEDTIME #30 tablet [Rx] Clopidogrel Bisulfate [Clopidogrel] 75 mg PO DAILY 04/07/18 [History] Lisinopril 2.5 mg PO DAILY 04/07/18 [History] Magnesium Oxide [Magnesium] 400 mg PO BID 04/07/18 [History] Metoprolol Tartrate [Lopressor] 50 mg PO BID 04/07/18 [History] Rivaroxaban [Xarelto] 15 mg PO DAILY 04/07/18 [History] Past Medical History HEENT History: Reports: Hard of Hearing Cardiovascular History: Reports: Afib, High Cholesterol, Hypertension, Other ( See Below) Other Cardiovascular History: x6 stents placed February 2018 - Infectious Disease History Infectious Disease History: Reports: Chicken Pox, Measles - Past Surgical History HEENT Surgical History: Reports: Other (See Below) Other HEENT Surgeries/Procedures: left eye ulcer Cardiovascular Surgical History: Reports: Coronary Artery Stent Social & Family History - Family History Family Medical History: Noncontributory Cardiac: Reports: CAD Respiratory: Reports: None GI: Reports: None : Reports: None - Tobacco Use Smoking Status *Q: Never Smoker - Caffeine Use Caffeine Use: Reports: Coffee - Recreational Drug Use Recreational Drug Use: No ED ROS GENERAL - Review of Systems Review Of Systems: See Below Constitutional: Reports: No Symptoms Respiratory: Reports: No Symptoms Cardiovascular: Reports: No Symptoms GI/Abdominal: Reports: No Symptoms Musculoskeletal: Reports: No Symptoms Skin: Reports: Other (increased warmth) ED EXAM, GENERAL - Physical Exam Exam: See Below Exam Limited By: No Limitations General Appearance: Alert, WD/WN, No Apparent Distress Ears: Normal External Exam, Hearing Loss Ear Exam: Bilateral Ear: Auricle Normal, Canal Normal Nose: Normal Inspection, Normal Mucosa, No Blood Throat/Mouth: Normal Lips, Normal Voice, No Airway Compromise Head: Atraumatic, Normocephalic Neck: Normal Inspection Respiratory/Chest: No Respiratory Distress, No Accessory Muscle Use Cardiovascular: Regular Rate, Rhythm Extremities: Redness (Very minimal redness. ), Other (dorsum of the L hand is puffy and warmer than the opposite hand. No clear sign of phlebitis. ) Neurological: Alert, Oriented, CN II-XII Intact, Normal Cognition, No Motor/ Sensory Deficits Psychiatric: Normal Affect, Normal Mood Skin Exam: Warm, Dry, Intact, Normal Color, No Rash Lymphatic: No Adenopathy Course - Vital Signs Last Recorded V/S: Last Vital Signs Temp 36.9 C 04/07/18 06:01 Pulse 67 04/07/18 06:01 Resp 16 04/07/18 06:01 BP 110/73 04/07/18 06:01 Pulse Ox 96 04/07/18 06:01 Departure - Departure Time of Disposition: 06:22 Disposition: Home, Self-Care 01 Condition: Good Clinical Impression: Infected hand - Discharge Information Referrals: Rudy Evans MD [Primary Care Provider] - Forms: ED Department Discharge Additional Instructions: Take cephalexin as directed. Keep the hand elevated and apply warm, moist compresses to the hand. Recheck in the clinic on Wednesday, call for an appt. Take acetaminophen as needed for pain relief.
== END 2018-04-07 06:34 | disposition home or self-care (01) ==
LOC: JP.ED 05:17
DX: L08.89 Other specified local infections of the skin and subcutaneous tissue (principal); M79.642 Pain in left hand; I48.91 Unspecified atrial fibrillation; E78.00 Pure hypercholesterolemia, unspecified; I10 Essential (primary) hypertension; I25.10 Atherosclerotic heart disease of native coronary artery without angina pectoris; Z88.8 Allergy status to other drugs, medicaments and biological substances; Z88.0 Allergy status to penicillin; Z79.899 Other long term (current) drug therapy; Z95.5 Presence of coronary angioplasty implant and graft
CPT/HCPCS: 99283

== ENCOUNTER 2018-04-15 20:09 | Emergency (ER) | payer MEDICARE, OTHER ==
--- NOTE | 2018-04-15 21:33 | EDM.PDOC ---
ED HPI GENERAL MEDICAL PROBLEM - General Chief Complaint: Upper Extremity Injury/Pain Stated Complaint: LEFT WRIST SWOLLEN Time Seen by Provider: 04/15/18 21:00 Source of Information: Reports: Patient, Family History Limitations: Reports: No Limitations - History of Present Illness INITIAL COMMENTS - FREE TEXT/NARRATIVE: 82-year-old male that has had a recurring cellulitis of his left hand since IV placements 3 weeks ago. He finished cephalexin and it started worsening so today he was placed on prednisone. He's been on Bactrim DS for the past several days. No fevers or chills, today he was out working with the lawnmower and now his hand is more edematous. No significant erythema. Onset: Gradual Severity: Moderate Worsens with: Reports: Other (Any activity or pressure on the hand causes increased pain), Movement Left Hand Pain Score (Numeric/FACES): 8 - Related Data Allergies Allergy/AdvReac Type Severity Reaction Status Date / Time meropenem Allergy Hives Verified 04/07/18 05:52 Penicillins Allergy Hives Verified 03/03/18 14:07 Home Meds: Home Meds atorvaSTATin Calcium [Atorvastatin Calcium] 80 mg PO BEDTIME #30 tablet [Rx] Clopidogrel Bisulfate [Clopidogrel] 75 mg PO DAILY 04/07/18 [History] Lisinopril 2.5 mg PO DAILY 04/07/18 [History] Magnesium Oxide [Magnesium] 400 mg PO BID 04/07/18 [History] Metoprolol Tartrate [Lopressor] 50 mg PO BID 04/07/18 [History] Rivaroxaban [Xarelto] 15 mg PO DAILY 04/07/18 [History] Sulfamethoxazole/Trimethoprim [Bactrim Ds Tablet] 1 each PO BID 04/15/18 [ History] predniSONE [Prednisone] 30 mg PO DAILY 04/15/18 [History] Past Medical History HEENT History: Reports: Hard of Hearing Cardiovascular History: Reports: Afib, High Cholesterol, Hypertension, Other ( See Below) Other Cardiovascular History: x6 stents placed February 2018 - Infectious Disease History Infectious Disease History: Reports: Chicken Pox, Measles, Mumps - Past Surgical History HEENT Surgical History: Reports: Other (See Below) Other HEENT Surgeries/Procedures: left eye ulcer Cardiovascular Surgical History: Reports: Coronary Artery Stent Social & Family History - Family History Family Medical History: Noncontributory Cardiac: Reports: CAD Respiratory: Reports: None GI: Reports: None : Reports: None - Tobacco Use Smoking Status *Q: Never Smoker - Caffeine Use Caffeine Use: Reports: Coffee - Recreational Drug Use Recreational Drug Use: No Review of Systems - Review of Systems Review Of Systems: See Below Constitutional: Denies: Fever Respiratory: Denies: Shortness of Breath Cardiovascular: Reports: Other (Recent cardiac stents were placed) Musculoskeletal: Reports: Hand Pain Skin: Reports: Bruising (Swollen area of the hand almost looks bruised) ED EXAM, GENERAL - Physical Exam Exam: See Below Exam Limited By: No Limitations General Appearance: Alert, No Apparent Distress (Patient is not distressed but looks uncomfortable.) Respiratory/Chest: No Respiratory Distress, Lungs Clear Cardiovascular: Regular Rate, Rhythm Extremities: Other (Remainder of exam is limited to the right and left hand. The right hand appears normal, the left hand has significant edema through the back of the hand into the index middle and ring fingers. There is pain with movement of the middle finger. There is slight erythema but no significant redness or warmth.) Course - Vital Signs Last Recorded V/S: Last Vital Signs Temp 97.7 F 04/15/18 21:26 Pulse 62 04/15/18 21:26 Resp 16 04/15/18 21:26 BP 107/82 04/15/18 21:26 Pulse Ox 94 L 04/15/18 21:26 - Re-Assessments/Exams Free Text/Narrative Re-Assessment/Exam: 04/15/18 21:32 I think the hand needs to be further investigated with ultrasound. An x-ray was negative today and he was placed on prednisone but they decided not to start until tomorrow. He was given 10 hydrocodone for pain control tonight, an ultrasound was scheduled for tomorrow and he needs to start the prednisone in the morning. Ultrasound results will be communicated to the emergency room physician. Departure - Departure Time of Disposition: 21:45 Disposition: Home, Self-Care 01 Condition: Good Clinical Impression: Infected hand - Discharge Information Instructions: Cellulitis, Adult Referrals: PCP,None [Primary Care Provider] - Forms: ED Department Discharge Care Plan Goals: Continue with antibiotics as prescribed, prednisone as prescribed, and use hydrocodone for pain tonight. You will get a call tomorrow regarding an ultrasound of your hand which hopefully can be done at 1 PM. Just return to the emergency room in the morning if worse such as fever or increased redness and swelling or pain.
== END 2018-04-15 21:45 | disposition home or self-care (01) ==
LOC: JP.ED 20:09
DX: L03.114 Cellulitis of left upper limb (principal); I48.91 Unspecified atrial fibrillation; E78.00 Pure hypercholesterolemia, unspecified; I10 Essential (primary) hypertension; Z88.0 Allergy status to penicillin; Z88.8 Allergy status to other drugs, medicaments and biological substances; Z79.899 Other long term (current) drug therapy; Z95.5 Presence of coronary angioplasty implant and graft
CPT/HCPCS: 99283

== ENCOUNTER 2024-07-16 21:41 | Emergency (ER) | payer MEDICARE | END 2024-07-16 23:08 | disposition home or self-care (01) | LOC: JP.ED 21:41 | DX: U07.1 COVID-19 (principal); I10 Essential (primary) hypertension; E78.00 Pure hypercholesterolemia, unspecified; Z88.0 Allergy status to penicillin; Z88.8 Allergy status to other drugs, medicaments and biological substances; Z79.899 Other long term (current) drug therapy; Z86.16 Personal history of COVID-19 | CPT/HCPCS: 99284 ==

== ENCOUNTER 2024-10-10 19:14 | Emergency (ER) | payer MEDICARE | END 2024-10-10 20:44 | disposition home or self-care (01) | LOC: JP.ED 19:14 | DX: R33.9 Retention of urine, unspecified (principal); I48.91 Unspecified atrial fibrillation; I10 Essential (primary) hypertension; E78.00 Pure hypercholesterolemia, unspecified; Z86.16 Personal history of COVID-19; Z95.5 Presence of coronary angioplasty implant and graft; Z88.0 Allergy status to penicillin; Z88.8 Allergy status to other drugs, medicaments and biological substances; Z79.01 Long term (current) use of anticoagulants; Z79.899 Other long term (current) drug therapy | CPT/HCPCS: 51702; 99283 ==